=== PATIENT | male | born 1960 | race Caucasian/White ===

== ENCOUNTER 2016-09-21 08:11 | Observation (INO) | payer SELFPAY ==
[2016-09-21] VITALS (7 sets, daily range): BP systolic 124–148; BP diastolic 77–105; PULSE 76–93; RESP 14–20; TEMP 97.9–98.4; O2SAT 95–99
[~2016-09-21] VITALS: Ht 177.8 cm; Wt 118.5 kg
[~2016-09-21 08:11] MED LIST: DYAZ37.52 PO; INDO50CA PO; OMEP20CA5 PO; ST JTAB PO; [UNRECOGNIZED DRUG - OTHER]
--- NOTE | 2016-09-21 08:44 | PD ---
HPI Chief Complaint: Respiratory Symptoms Time Seen by Provider: 08:41 Travel History International Travel<30 days: No Contact w/Intl Traveler<30days: No Traveled to known affect area: No History of Present Illness HPI 56-year-old male with history of hypertension, presents to the ER today for several months history of dyspnea on exertion, leg swelling, worse with laying down. He states he sleeps on 3 pillows. He does not have a primary care physician and has not had this looked at. Modifying Factors: None Associated Signs & Symptoms: Worsening dyspnea on exertion, leg swelling Risk Factors: None PFSH Past Medical History Asthma: Yes (as a child ) Diminished Hearing: No GERD: Yes Hypertension: Yes Respiratory: Yes Past Surgical History Surgical History: No Previous Surgery Social History Alcohol Use: Yes ("3-4 times a week,2-3 beers a day") Tobacco Use: No (quit 1993) Substance Use: No Allergies-Medications (Allergen,Severity, Reaction): Coded Allergies: No Known Allergies (Verified , 05/09/14) Uncoded Allergies: blood pressure medication (Allergy, Severe, 09/21/16) unknown what the medication is. it caused a rash Reported Meds & Prescriptions Reported Meds & Active Scripts Active Reported Proair Respiclick Inh (Albuterol Sulfate) 90 Mcg/Act Aerp 1 Puff INH Q4H PRN Triamterene-Hydrochlorothiazide 37.5-25 Mg Tab 1 Tab PO DAILY Review of Systems Except as stated in HPI: all other systems reviewed are Neg Physical Exam Narrative GENERAL: Well-developed middle age white male patient currently in mild respiratory distress. Awake and oriented 3. SKIN: Focused skin assessment warm/dry. HEAD: Atraumatic. Normocephalic. EYES: Pupils equal and round. No scleral icterus. No injection or drainage. ENT: No nasal bleeding or discharge. Mucous membranes pink and moist. NECK: Trachea midline. No JVD. CARDIOVASCULAR: Regular rate and rhythm. No murmur appreciated. RESPIRATORY: No accessory muscle use. Clear to auscultation, decreased at the bases bilaterally. Breath sounds equal bilaterally. GASTROINTESTINAL: Abdomen soft, non-tender, nondistended. Hepatic and splenic margins not palpable. MUSCULOSKELETAL: No obvious deformities. No clubbing. No cyanosis. Trace pitting edema the legs bilaterally. NEUROLOGICAL: Awake and alert. No obvious cranial nerve deficits. Motor grossly within normal limits. Normal speech. PSYCHIATRIC: Appropriate mood and affect; insight and judgment normal. Data Data Last Documented VS Vital Signs Date Time Temp Pulse Resp B/P Pulse Ox O2 Delivery O2 Flow Rate FiO2 09/21/16 10:30 76 19 132/78 98 Nasal Cannula 2.0 09/21/16 08:13 98.0 Orders Complete Blood Count With Diff (09/21/16 08:41) Comprehensive Metabolic Panel (09/21/16 08:41) B-Type Natriuretic Peptide (09/21/16 08:41) D-Dimer (09/21/16 08:41) Act Partial Throm Time (Ptt) (09/21/16 08:41) Prothrombin Time / Inr (Pt) (09/21/16 08:41) Ckmb (Isoenzyme) Profile (09/21/16 08:41) Troponin I (09/21/16 08:41) Iv Access Insert/Monitor (09/21/16 08:41) Electrocardiogram (09/21/16 08:41) Ecg Monitoring (09/21/16 08:41) Oximetry (09/21/16 08:41) Oxygen Administration (09/21/16 08:41) Chest, Single Ap (09/21/16 08:41) Sodium Chloride 0.9% Flush (Ns Flush) (09/21/16 08:45) Furosemide Inj (Lasix Inj) (09/21/16 09:15) CKMB (09/21/16 08:46) CKMB% (09/21/16 08:46) Ct Pulmonary Angiogram (09/21/16 09:43) Iohexol 350 Inj (Omnipaque 350 Inj) (09/21/16 11:18) Labs Laboratory Tests Test 09/21/16 08:46 White Blood Count 7.0 TH/MM3 Red Blood Count 4.65 MIL/MM3 Hemoglobin 15.0 GM/DL Hematocrit 43.1 % Mean Corpuscular Volume 92.7 FL Mean Corpuscular Hemoglobin 32.3 PG Mean Corpuscular Hemoglobin 34.8 % Concent Red Cell Distribution Width 13.9 % Platelet Count 289 TH/MM3 Mean Platelet Volume 7.7 FL Neutrophils (%) (Auto) 69.7 % Lymphocytes (%) (Auto) 18.7 % Monocytes (%) (Auto) 4.8 % Eosinophils (%) (Auto) 5.5 % Basophils (%) (Auto) 1.3 % Neutrophils # (Auto) 4.8 TH/MM3 Lymphocytes # (Auto) 1.3 TH/MM3 Monocytes # (Auto) 0.3 TH/MM3 Eosinophils # (Auto) 0.4 TH/MM3 Basophils # (Auto) 0.1 TH/MM3 CBC Comment DIFF FINAL Differential Comment Prothrombin Time 11.2 SEC Prothromb Time International 1.0 RATIO Ratio Activated Partial 26.8 SEC Thromboplast Time D-Dimer Quantitative (PE/DVT) 0.95 MG/L FEU Sodium Level 139 MEQ/L Potassium Level 4.7 MEQ/L Chloride Level 107 MEQ/L Carbon Dioxide Level 23.7 MEQ/L Anion Gap 8 MEQ/L Blood Urea Nitrogen 15 MG/DL Creatinine 0.94 MG/DL Estimat Glomerular Filtration 83 ML/MIN Rate Random Glucose 108 MG/DL Calcium Level 9.7 MG/DL Total Bilirubin 0.9 MG/DL Aspartate Amino Transf 27 U/L (AST/SGOT) Alanine Aminotransferase 57 U/L (ALT/SGPT) Alkaline Phosphatase 83 U/L Total Creatine Kinase 131 U/L Creatine Kinase MB 2.0 NG/ML Troponin I LESS THAN 0.02 NG/ML B-Type Natriuretic Peptide 268 PG/ML Total Protein 7.6 GM/DL Albumin 4.2 GM/DL [facility] Medical Decision Making Medical Screen Exam Complete: Yes Emergency Medical Condition: Yes Medical Record Reviewed: Yes Interpretation(s) EKG shows normal sinus rhythm with a rate of 75 bpm with occasional APCs. No signs of acute ST-T changes. Laboratory Tests Test 09/21/16 08:46 Eosinophils (%) (Auto) 5.5 % (0.0-4.0) D-Dimer Quantitative (PE/DVT) 0.95 MG/L FEU (0.00-0.50) Estimat Glomerular Filtration 83 ML/MIN (>89) Rate Random Glucose 108 MG/DL (74-106) Troponin I LESS THAN 0.02 NG/ML (0.02-0.05) B-Type Natriuretic Peptide 268 PG/ML (0-100) Last [address] Angiography 09/21/16 0943 Signed Impressions: Service Date/Time: Wednesday, September 21, 2016 10:51 - CONCLUSION: 3.7 cm right middle lobe mass. Cardiomegaly, small effusions and nonspecific mediastinal wilmar enlargement. No evidence of pulmonary embolism Edmund Melton MD Chest X-Ray 09/21/16 0841 Signed Impressions: Service Date/Time: Wednesday, September 21, 2016 08:44 - CONCLUSION: 1. Cardiomegaly with pulmonary edema pattern. Domenic Cardoso MD Differential Diagnosis Leg swelling, orthopnea, dyspnea on exertionCHF versus COPD versus pneumonia Narrative Course Chest x-ray shows some mild pulmonary edema. Lasix was given in the ER. D- dimer is elevated and CTA was ordered. There were no PEs found but there was notable right pulmonary mass. At this point, my plan would be to admit the patient for further treatment. Case was discussed with Dr. Mancuso for admission for further evaluation and treatment. Diagnosis Primary Impression: Lung mass Admitting Information Admitting Physician Requests: Admit Katy Lorenz MD Sep 21, 2016 08:43
[2016-09-21] MEDS ORDERED: SODIUM CHLORIDE 0.9% FLUSH 10 ML FLUSH IVF PRN (08:45)
--- NOTE | 2016-09-21 09:06 | RADRPT ---
EXAM DATE/TIME: 09/21/2016 08:44 [facility] COMPARISON: No previous studies available for comparison. INDICATIONS : Short of breath. Chest tightness. Respiratory noise. MEDICAL HISTORY : Hypertension. Asthma. SURGICAL HISTORY : None. ENCOUNTER: Initial ACUITY: 1 month PAIN SCORE: 110 LOCATION: Bilateral chest FINDINGS: Cardiac silhouette is enlarged. Diffuse patchy bilateral airspace and interstitial opacities. Bony th orax is intact. CONCLUSION: 1. Cardiomegaly with pulmonary edema pattern. Domenic Cardoso MD on September 21, 2016 at 8:59 Board Certified Radiologist. This report was verified electronically.
[2016-09-21] MEDS ORDERED: TRIA37.5 PO (09:14)
[2016-09-21] MEDS ORDERED: ALBU1AER5 INH (09:14)
[2016-09-21] MEDS ORDERED: FUROSEMIDE 40 MG/4 ML VIAL IV PUSH ONE (09:15)
[2016-09-21 09:16] LABS: AUTOMATED NEUTROPHIL # 4.8 TH/MM3 (1.8-7.7); BASOPHIL # 0.1 TH/MM3 (0-0.2); BASOPHIL % 1.3 % (0.0-2.0); EOSINOPHIL # 0.4 TH/MM3 (0-0.4); EOSINOPHIL % 5.5 % (0.0-4.0); HEMATOCRIT 43.1 % (39.0-51.0); HEMO FLAGS DIFF FINAL; LYMPH % 18.7 % (9.0-44.0); LYMPHOCYTE # 1.3 TH/MM3 (1.0-4.8); MEAN CELL VOLUME 92.7 FL (80.0-100.0); MEAN CORPUSCULAR HEMOGLOBIN 32.3 PG (27.0-34.0); MEAN CORPUSCULAR HGB CONC 34.8 % (32.0-36.0); MONO % 4.8 % (0.0-8.0); NEUT % 69.7 % (16.0-70.0); PLATELET COUNT 289 TH/MM3 (150-450); RED BLOOD COUNT 4.65 MIL/MM3 (4.50-5.90); RED CELL DISTRIBUTION WIDTH 13.9 % (11.6-17.2)
[2016-09-21 09:31] LABS: ALT (GPT) 57 U/L (12-78); ANION GAP 8 MEQ/L (5-15); AST (GOT) 27 U/L (15-37); BICARBONATE 23.7 MEQ/L (21.0-32.0); BLOOD UREA NITROGEN 15 MG/DL (7-18); CHLORIDE 107 MEQ/L (98-107); GLOMERULAR FILTRATION RATE 83 ML/MIN (>89); POTASSIUM 4.7 MEQ/L (3.5-5.1); SODIUM (NA) 139 MEQ/L (136-145)
[2016-09-21 09:34] LABS: APTT (PATIENT) 26.8 SEC (24.3-30.1); PROTHROMBIN TIME - PATIENT 11.2 SEC (9.8-11.6)
[2016-09-21 09:35] LABS: ALKALINE PHOSPHATASE 83 U/L (45-117); CREATINE KINASE 131 U/L (39-308); TOTAL BILIRUBIN ADULT 0.9 MG/DL (0.2-1.0)
--- NOTE | 2016-09-21 11:17 | RADRPT ---
EXAM DATE/TIME: 09/21/2016 10:51 [facility] COMPARISON: CHEST SINGLE AP, September 21, 2016, 8:44. INDICATIONS : Dyspnea,edema bilateral ankles IV CONTRAST: 75 cc Omnipaque 350 (iohexol) IV RADIATION DOSE: 23.47 CTDIvol (mGy) MEDICAL HISTORY : Hypertension. SURGICAL HISTORY : None. ENCOUNTER: Initial ACUITY: 3 months PAIN SCALE: 0/10 LOCATION: chest TECHNIQUE: Volumetric scanning of the chest was performed using a pulmonary embolism protocol MIP images were re constructed. Using automated exposure control and adjustment of the mA and/or kV according to patien t size, radiation dose was kept as low as reasonably achievable to obtain optimal diagnostic quality images. DICOM format image data is available electronically for review and comparison. FINDINGS: PULMONARY ARTERIES: No filling defects are seen in the pulmonary arteries through the segmental level. LUNGS: There is a lobular 3.7 cm low density mass density in the right middle lobe. There is mild dependent atelectasis. PLEURAE: Small effusions and minimal fissural fluid MEDIASTINUM: Cardiac enlargement. Nonspecific mediastinal wilmar enlargement with prominent nodes seen in the preva scular, paratracheal and subcarinal regions, largest subcarinal node having a short axis dimension ap proaching 2 cm. MUSCULOSKELETAL: Within normal limits for patient age. MISCELLANEOUS: The visualized upper abdominal organs demonstrate no acute abnormality. CONCLUSION: 3.7 cm right middle lobe mass. Cardiomegaly, small effusions and nonspecific mediastinal wilmar enlargement. No evidence of pulmonary embolism Edmund Melton MD on September 21, 2016 at 11:08 Board Certified Radiologist. This report was verified electronically.
[2016-09-21] MEDS ORDERED: IOHEXOL 350 MG/ML 10 ML VIAL (for RAD DIAG) IV ONE (11:18)
[2016-09-21] MEDS ORDERED: ONDANSETRON HCL 4 MG/2 ML VIAL IVP PRN (12:15)
[2016-09-21] MEDS ORDERED: SENNOSIDES 8.6 MG TAB PO PRN (12:15)
[2016-09-21] MEDS ORDERED: BISACODYL 10 MG SUPP RECTAL PRN (12:15)
[2016-09-21] MEDS ORDERED: SODIUM CHLORIDE 0.9% FLUSH 10 ML FLUSH IV FLUSH PRN (12:15)
[2016-09-21] MEDS ORDERED: MAGNESIUM HYDROXIDE SUSP 30 ML CUP PO PRN (12:15)
[2016-09-21] MEDS ORDERED: NALOXONE HCL 0.4 MG/ML AMP IV PRN (12:15)
[2016-09-21] MEDS ORDERED: ENOXAPARIN SODIUM 40 MG/0.4 ML SYRINGE SQ SCH (12:15)
[2016-09-21] MEDS ORDERED: RESP: ALBUTEROL 2.5 MG/IPRATROPIUM 0.5 MG NEB (PRN) NEB (12:15)
[2016-09-21] MEDS ORDERED: LACTULOSE SYRUP 20 GM/30 ML CUP PO PRN (12:15)
--- NOTE | 2016-09-21 12:26 | HHI.HP ---
[facility] No Primary Care Physician Admission Diagnosis shortness of breath/lung mass Diagnoses: Chief Complaint: Shortness of breath. Travel History International Travel<30 Days: No Contact w/Intl Traveler <30 Da: No Traveled to Known Affected Are: No History of Present Illness Mr. Parnell is a pleasant 56-year-old male with a history of hypertension who presents to the emergency department today due to shortness of breath. Patient started noticing dyspnea in May 2016 but especially in the last 4 weeks he has noticed much worsening of his symptoms. He is not able to walk even short distances within his house. He denies any productive cough or fever or chills. This morning around 2 AM he woke up with shortness of breath. He has been increasing number of pillows from 1-3 pillows to sleep. Even then sometimes he has to sleep upright. He has not noticed much leg swelling except some bilateral ankle swelling. Today he went to work but he could not get out of the car because he felt so sick and short of breath. Subsequently he came to the emergency Department for an evaluation. He denies any changes in bowel or bladder habits. Denies any abdominal pain. Review of Systems Except as stated in HPI: all other systems reviewed are Neg Past Family Social History Past Medical History Asthma GERD Hypertension Past Surgical History No major surgery in the past. Reported Medications Proair Respiclick Inh (Albuterol Sulfate) 90 Mcg/Act Aerp 1 Puff INH Q4H PRN Triamterene-Hydrochlorothiazide 37.5-25 Mg Tab 1 Tab PO DAILY Allergies: Coded Allergies: No Known Allergies (Verified , 05/09/14) Uncoded Allergies: blood pressure medication (Allergy, Severe, 09/21/16) unknown what the medication is. it caused a rash Social History Quit smoking in 1993. Alcohol use 3-4 times a week, 2-3 beers a day. No illicit drugs. Physical Exam Vital Signs Vital Signs Date Time Temp Pulse Resp B/P Pulse Ox O2 Delivery O2 Flow Rate FiO2 09/21/16 10:30 76 19 132/78 98 Nasal Cannula 2.0 09/21/16 09:50 99 Nasal Cannula 2.0 09/21/16 09:50 83 14 134/92 99 Nasal Cannula 2.0 09/21/16 09:50 Nasal Cannula 2.0 09/21/16 09:30 86 16 148/99 99 Nasal Cannula 2.0 09/21/16 08:33 93 18 98 Room Air 09/21/16 08:21 09/21/16 08:13 98.0 93 20 142/105 97 Room Air Physical Exam GENERAL: This is a well-nourished, well-developed patient, in no apparent distress. SKIN: No rashes, ecchymoses or lesions. Warm and dry. HEAD: Atraumatic. Normocephalic. No temporal or scalp tenderness. EYES: Pupils equal round and reactive. No injection or drainage. ENT: Nose without bleeding, purulent drainage or septal hematoma. Airway patent. NECK: Trachea midline. No lymphadenopathy. Supple, nontender, no meningeal signs. CARDIOVASCULAR: Regular rate and rhythm without murmurs, gallops, or rubs. No JVD. RESPIRATORY: Moderate air entry, no wheezing or crackles appreciated. GASTROINTESTINAL: Abdomen soft, non-tender, nondistended. No guarding. MUSCULOSKELETAL: Extremities without clubbing, cyanosis, or edema. NEUROLOGICAL: Awake and alert. Cranial nerves II through XII intact. No focal neurological deficits. Normal speech. Laboratory Laboratory Tests Test 09/21/16 08:46 White Blood Count 7.0 Red Blood Count 4.65 Hemoglobin 15.0 Hematocrit 43.1 Mean Corpuscular Volume 92.7 Mean Corpuscular Hemoglobin 32.3 Mean Corpuscular Hemoglobin 34.8 Concent Red Cell Distribution Width 13.9 Platelet Count 289 Mean Platelet Volume 7.7 Neutrophils (%) (Auto) 69.7 Lymphocytes (%) (Auto) 18.7 Monocytes (%) (Auto) 4.8 Eosinophils (%) (Auto) 5.5 Basophils (%) (Auto) 1.3 Neutrophils # (Auto) 4.8 Lymphocytes # (Auto) 1.3 Monocytes # (Auto) 0.3 Eosinophils # (Auto) 0.4 Basophils # (Auto) 0.1 CBC Comment DIFF FINAL Differential Comment Prothrombin Time 11.2 Prothromb Time International 1.0 Ratio Activated Partial 26.8 Thromboplast Time D-Dimer Quantitative (PE/DVT) 0.95 Sodium Level 139 Potassium Level 4.7 Chloride Level 107 Carbon Dioxide Level 23.7 Anion Gap 8 Blood Urea Nitrogen 15 Creatinine 0.94 Estimat Glomerular Filtration 83 Rate Random Glucose 108 Calcium Level 9.7 Total Bilirubin 0.9 Aspartate Amino Transf 27 (AST/SGOT) Alanine Aminotransferase 57 (ALT/SGPT) Alkaline Phosphatase 83 Total Creatine Kinase 131 Creatine Kinase MB 2.0 Troponin I LESS THAN 0.02 B-Type Natriuretic Peptide 268 Total Protein 7.6 Albumin 4.2 Result Diagram: 09/21/1646 09/21/[address] Angiography 09/21/16 09 Signed Impressions: Service Date/Time: Wednesday, September 21, 2016 10:51 - CONCLUSION: 3.7 cm right middle lobe mass. Cardiomegaly, small effusions and nonspecific mediastinal wilmar enlargement. No evidence of pulmonary embolism Edmund Melton MD Chest X-Ray 09/21/1641 Signed Impressions: Service Date/Time: Wednesday, September 21, 2016 08:44 - CONCLUSION: 1. Cardiomegaly with pulmonary edema pattern. Domenic Cardoso MD Assessment and Plan Problem List: (1) Lung mass ICD Code: R91.8 Status: Acute (2) Hypertension ICD Code: I10 Status: Acute (3) GERD (gastroesophageal reflux disease) ICD Code: K21.9 Status: Acute Assessment and Plan Mr. Parnell is a 56-year-old male with a history of hypertension, remote history of smoking who presents to the emergency department due to worsening shortness of breath that started in May 2016 but especially worse in the last [address] PE protocol was done which showed a right-sided middle lobe lung mass. Patient also complains of orthopnea and some bilateral ankle swelling. - Admit patient under observation - Right middle lobe lung mass - Probable congestive heart failure - Probable COPD - BNP was 268 which may be lower due to patient's body habitus. - We'll obtain 2-D echocardiogram to evaluate LV function. - CT-guided lung biopsy on 09/22/2016. - Pulmonology consult. - Continue DuoNeb every 4 hours when necessary. - History of Hypertension - Currently normotensive. No need for antihypertensive medications at this point. - History of tobacco use - quit smoking 22 years ago but patient smoked for about 20 years. - Alcohol abuse - patient drinks 2-4 beer per night. We'll initiate CIWA protocol Full code. SCDs for now. Consider pharmacological DVT prophylaxis after CT- guided biopsy tomorrow. Discharge plan: If proper follow-up arranged, patient can likely be discharged after CT-guided biopsy assuming he remains hemodynamically stable. Physician Certification 2 Midnight Certification Type: Admission for Inpatient Services Order for Inpatient Services The services are ordered in accordance with Medicare regulations or non- Medicare payer requirements, as applicable. In the case of services not specified as inpatient-only, they are appropriately provided as inpatient services in accordance with the 2-midnight benchmark. Estimated LOS (days): 1 days is the estimated time the patient will need to remain in the hospital, assuming treatment plan goals are met and no additional complications. Post-Hospital Plan: Home Notes: Patient will be admitted under observation. Carlos Mancuso DO Sep 21, 2016 12:25 pm Carlos Mancuso DO Sep 21, 2016 12:25 pm
[2016-09-21] MEDS ORDERED: LORazepam 1 MG TAB PO PRN (13:45)
[2016-09-21] MEDS ORDERED: LORazepam 2 MG/ML VIAL IV PUSH PRN ×4 (13:45)
[2016-09-21] MEDS ORDERED: LORazepam 2 MG TAB PO PRN (13:45)
[2016-09-21] MEDS ORDERED: FLUMAZENIL 0.5 MG/5 ML VIAL IV PUSH PRN (13:45)
--- NOTE | 2016-09-21 19:04 | EKG ---
Date Performed: 09/21/2016 Time Performed: 10:14:32 PTAGE: 56 years EKG: Sinus rhythm WITH OCCASIONAL VENTRICULAR PREMATURE COMPLEXES BORDERLINE ECG NO PREVIOUS TRACING DOCTOR: Trevor Hernandez Interpretating Date/Time 09/21/2016 19:02:32
[2016-09-21] MEDS: DOCUSATE SODIUM 50 MG/SENNA 8.6 MG TAB PO SCH (19:56)
--- NOTE | 2016-09-21 21:50 | MB ---
cc: ADWOA LIMA DATE OF CONSULTATION 09/21/[address] Alexus Del Cid REASON FOR CONSULTATION Lung mass HISTORY OF PRESENT ILLNESS This is a pleasant 56-year-old male with history of hypertension, asthma as a child. No problem as an adult. He has not seen any physician over the last two years. He ran out of his blood pressure medication a long time ago and he stopped taking his medication. He came to the hospital with shortness of breath for at least four months which is gradually getting worse to the extent that he can barely walk inside the house. He also has orthopnea and PND, swelling in his legs. He did not have any fever or chills. He has cough, occasional chills. No nausea or vomiting. No hemoptysis. No weight loss. Because of these symptoms, he came to the hospital. He had a CT of the chest done. It does not show any pulmonary embolism. It showed a 3.7 cm right middle lobe mass and small pleural effusion. Nonspecific hilar lymphadenopathy. His CBC showed WBC count 7.0, hemoglobin 15.0, hematocrit 43.1 MCV 92, platelet count 289. His INR is 1.0, sodium 139, potassium 4.7, chloride 107, CO2 23, BUN 15, creatinine 0.94. PAST MEDICAL HISTORY Hypertension MEDICATIONS History of asthma as a child. MEDICATIONS Currently taking 1. Lorazepam p.r.n. 2. Lovenox 40 mg subcu which is on hold. 3. Albuterol/Atrovent nebulizer treatment. 4. Lasix IV. ALLERGIES NO KNOWN DRUG ALLERGIES. SOCIAL HISTORY He is . 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 He has history of smoking for 20 years which he quit. He drinks socially. FAMILY HISTORY He has no children. He has one brother and one sister. Father with a fall and broken neck. Mother is alive. REVIEW OF SYSTEMS He denies any weight loss. No headache or dizziness. He has orthopnea and PND. He has swelling in his legs. No DVT or pulmonary embolism. PHYSICAL EXAMINATION GENERAL: Well-built, well-nourished male not in any acute distress. VITAL SIGNS: Blood pressure 126/85, heart rate 77, respirations 20, temperature 97.9 HEENT: Pupils are equal and reactive to light. Oral mucosa, nasal mucosa normal. NECK: Supple. JVP not raised. CHEST: Equal bilaterally. No rhonchi. CARDIOVASCULAR: S1, S2 normal. ABDOMEN: Soft, nontender, nondistended. Bowel sounds are present. EXTREMITIES: 1+ pedal edema. HEALTH INFORMATION ADMINISTRATOR: Alert and oriented times three, no focal deficit. IMPRESSION 1. Right middle lobe mass concerning for malignancy. 2. Small pleural effusion. 3. Hypertension 4. Shortness of breath, orthopnea and PND. Need to rule out possibility of congestive heart failure. PLAN Discussed with the patient he will need a CT-guided lung biopsy. I explained the procedure and the complication which he understands and wants to proceed with it. I will request interventional radiology for CT-guided biopsy. Further treatment will depend in the course in the hospital. Thank you, Dr. Alexus Del Cid, for this consultation. MD ATA Contreras/ /7:53 PM /9:41 PM [facility]
[2016-09-21] MEDS: SODIUM CHLORIDE 0.9% FLUSH 10 ML FLUSH IV FLUSH SCH (22:58)
[2016-09-22] VITALS (10 sets, daily range): BP systolic 104–130; BP diastolic 67–85; PULSE 68–91; RESP 16–18; TEMP 97–98.4; O2SAT 91–99
[2016-09-22 05:44] LABS: AUTOMATED NEUTROPHIL # 4.4 TH/MM3 (1.8-7.7); BASOPHIL # 0.1 TH/MM3 (0-0.2); BASOPHIL % 1.2 % (0.0-2.0); EOSINOPHIL # 0.5 TH/MM3 (0-0.4); EOSINOPHIL % 7.2 % (0.0-4.0); HEMATOCRIT 42.6 % (39.0-51.0); HEMO FLAGS DIFF FINAL; LYMPH % 21.5 % (9.0-44.0); LYMPHOCYTE # 1.5 TH/MM3 (1.0-4.8); MEAN CELL VOLUME 93.2 FL (80.0-100.0); MEAN CORPUSCULAR HEMOGLOBIN 32.1 PG (27.0-34.0); MEAN CORPUSCULAR HGB CONC 34.4 % (32.0-36.0); MONO % 8.2 % (0.0-8.0); NEUT % 61.9 % (16.0-70.0); PLATELET COUNT 274 TH/MM3 (150-450); RED BLOOD COUNT 4.57 MIL/MM3 (4.50-5.90); RED CELL DISTRIBUTION WIDTH 14.1 % (11.6-17.2); WHITE BLOOD COUNT 7.1 TH/MM3 (4.0-11.0)
[2016-09-22 06:08] LABS: BICARBONATE 26.2 MEQ/L (21.0-32.0); POTASSIUM 4.1 MEQ/L (3.5-5.1)
[2016-09-22] MEDS: DOCUSATE SODIUM 50 MG/SENNA 8.6 MG TAB PO SCH ×2 (09:00→20:46)
[2016-09-22] MEDS: ACETAMINOPHEN 325 MG TAB PO PRN (09:22)
[2016-09-22] MEDS: SODIUM CHLORIDE 0.9% FLUSH 10 ML FLUSH IV FLUSH SCH ×2 (09:25→20:46)
[2016-09-22] MEDS ORDERED: PNEUMOCOCCAL POLYVALENT INJ 25 MCG/0.5 ML SYR IM ONE (10:00)
[2016-09-22] MEDS ORDERED: LIDOCAINE 1%/EPINEPHrine 1:100,000 SOLN 20 ML VIAL ONE (14:30)
[2016-09-22] MEDS ORDERED: MIDAZOLAM HCL 5 MG/5 ML VIAL ONE (15:00)
[2016-09-22] MEDS ORDERED: fentaNYL CITRATE 250 MCG/5 ML AMP ONE (15:00)
--- NOTE | 2016-09-22 15:22 | PD.RAD ---
Post CT Procedure Prog Note Pre Procedure Diagnosis: (1) Lung mass Post Procedure Diagnosis: (1) Lung mass Procedure Date: Sep 22, 2016 Supervising Radiologist: Reginaldo Durbin Anesthesia: Local, Conscious Sedation Plan of Activity Patient to Unit: [facility]U Patient Condition: Good Additional Comments: Successful ct guided biopsy of the right lung mass 3 core samples obtained and sent for pathology See PACS Report for procedural detail/treatment Reginaldo Durbin MD Sep 22, 2016 15:22
--- NOTE | 2016-09-22 16:07 | RADRPT ---
EXAM DATE/TIME: 09/22/2016 15:02 [facility] COMPARISON: CT PULMONARY ANGIOGRAM, September 21, 2016, 10:51. INDICATIONS : Right middle lobe mass SEDATION TIME: 20 minutes BIOPSY SITE: Right Lung MEDICATION(S): 1.) 3 mg midazolam (Versed) IV 2.) 150 mcg fentanyl (Sublimaze) IV DEVICE(S): 1.) 20 gauge Temno core biopsy needle MEDICAL HISTORY : Hypertension. SURGICAL HISTORY : None. ENCOUNTER: Initial ACUITY: 1 day PAIN SCORE: 0/10 LOCATION: Right chest A total of three core specimen(s) were obtained and sent to the laboratory for pathologic evaluation. PROCEDURE: 1. CT guided right lung biopsy. Prior to the procedure informed consent was obtained. Any appropriate prior imaging studies were rev iewed. Using automated exposure control and adjustment of the mA and/or kV according to patient size, radiation dose was kept as low as reasonably achievable to obtain optimal diagnostic quality images. DICOM format image data is available electronically for review and comparison. The site was prepped in a sterile fashion. Full sterile technique was used, including cap, mask, dali rile gloves and gown and a large sterile sheet. Hand hygiene and 2% chlorhexidine and/or betadine/al cohol prep was utilized per protocol for cutaneous antisepsis. The skin and subcutaneous tissues wer e infiltrated with local anesthetic solution. With CT guidance the previously identified target was localized. Biopsy was performed using the presc ribed needle as above. Adequate hemostasis was obtained with compression at the puncture site. Follow-up CT scan reveals no pneumothorax. Conscious sedation was performed with the prescribed dosages and duration as above in the presence of an independent trained radiology nurse to assist in the monitoring of the patient. EKG and oximetry remained stable throughout the procedure. The patient tolerated the procedure well and there were no complications. The patient was sent to Radiology Outpatient Unit in stable condition. CONCLUSION: Uncomplicated CT guided biopsy. Reginaldo Durbin MD on September 22, 2016 at 16:05 Board Certified Radiologist. This report was verified electronically.
--- NOTE | 2016-09-22 17:48 | RADRPT ---
EXAM DATE/TIME: 09/22/2016 17:19 [facility] COMPARISON: No previous studies available for comparison. INDICATIONS : Post right lung biopsy. MEDICAL HISTORY : Hypertension. SURGICAL HISTORY : None. ENCOUNTER: Subsequent ACUITY: 1 day PAIN SCORE: 0/10 LOCATION: Right chest FINDINGS: A single frontal expiratory view of the chest was performed. The lungs are symmetrically aerated and clear. No evidence of pneumothorax. Mediastinal structures are in the midline. Redemonstration of mass in the right middle lobe. The cardio-mediastinal contours and bronchopulmonary markings are unremarkable for an expiratory exam . Osseous structures are intact. CONCLUSION: 1. No significant pneumothorax following biopsy of right middle lobe mass. Domenic Cardoso MD on September 22, 2016 at 17:46 Board Certified Radiologist. This report was verified electronically.
--- NOTE | 2016-09-22 18:06 | HHI.PR ---
Subjective Remarks 56 YOWM with RML mass, HTN, mils SOB Had Lung bx No PTX Objective Vital Signs Vital Signs Date Time Temp Pulse Resp B/P Pulse Ox O2 Delivery O2 Flow Rate FiO2 09/22/16 17:33 96 21 09/22/16 17:20 70 18 113/78 96 09/22/16 16:50 69 16 112/72 96 09/22/16 16:20 68 18 106/67 99 09/22/16 15:50 70 18 105/71 98 09/22/16 15:35 98.4 91 18 104/77 91 09/22/16 12:00 97.0 75 18 120/73 95 09/22/16 08:00 97.2 72 18 119/78 96 09/22/16 07:51 21 09/22/16 00:00 97.2 71 17 117/77 95 09/21/16 20:00 98.4 76 17 124/81 95 I/O 09/21/16 09/21/16 09/21/16 09/22/16 09/22/16 09/22/16 07:00 15:00 23:00 07:00 15:00 23:00 Intake Total 240 ml 0 ml 0 ml 0 ml Output Total 2525 ml 0 ml Balance -2285 ml 0 ml 0 ml 0 ml Intake Oral 240 ml 0 ml 0 ml 0 ml Output Urine Total 2525 ml 0 ml # Voids 1 1 2 2 # Bowel Movements 1 1 Result Diagram: 09/22/16 0500 09/22/16 0500 Objective Remarks GENERAL: WBWN WM,NAD SKIN: Warm and dry. HEAD: Normocephalic. EYES: No scleral icterus. No injection or drainage. NECK: Supple, trachea midline. No JVD or lymphadenopathy. CARDIOVASCULAR: Regular rate and rhythm without murmurs, gallops, or rubs. RESPIRATORY: Breath sounds equal bilaterally. No accessory muscle use. GASTROINTESTINAL: Abdomen soft, non-tender, nondistended. MUSCULOSKELETAL: No cyanosis, or edema. BACK: Nontender without obvious deformity. No CVA tenderness. A/P Assessment and Plan RML Mass S/P lung bx Dysnoea HTN PLAN: Check bx result Monitor BP Check Echo Karthik King MD Sep 22, 2016 18:06
--- NOTE | 2016-09-22 19:55 | HHI.PR ---
Subjective Remarks Follow-up for shortness of breath, lung mass. Patient is currently doing well. No fever or chills. Objective Vitals Vital Signs Date Time Temp Pulse Resp B/P Pulse Ox O2 Delivery O2 Flow Rate FiO2 09/22/16 17:33 96 21 09/22/16 17:20 70 18 113/78 96 09/22/16 16:50 69 16 112/72 96 09/22/16 16:20 68 18 106/67 99 09/22/16 15:50 70 18 105/71 98 09/22/16 15:35 98.4 91 18 104/77 91 09/22/16 12:00 97.0 75 18 120/73 95 09/22/16 08:00 97.2 72 18 119/78 96 09/22/16 07:51 21 09/22/16 00:00 97.2 71 17 117/77 95 09/21/16 20:00 98.4 76 17 124/81 95 I/O 09/21/16 09/21/16 09/21/16 09/22/16 09/22/16 09/22/16 07:00 15:00 23:00 07:00 15:00 23:00 Intake Total 240 ml 0 ml 0 ml 0 ml Output Total 2525 ml 0 ml Balance -2285 ml 0 ml 0 ml 0 ml Intake Oral 240 ml 0 ml 0 ml 0 ml Output Urine Total 2525 ml 0 ml # Voids 1 1 2 2 # Bowel Movements 1 1 Result Diagram: 09/22/16 0500 09/22/16 0500 Imaging Last Impressions Lung Biopsy CT 09/22/16 0000 Signed Impressions: Service Date/Time: Thursday, September 22, 2016 15:02 - CONCLUSION: Uncomplicated CT guided biopsy. Reginaldo Durbin MD Chest X-Ray 09/22/16 0000 Signed Impressions: Service Date/Time: Thursday, September 22, 2016 17:19 - CONCLUSION: 1. No significant pneumothorax following biopsy of right middle lobe mass. Domenic Cardoso MD CT Angiography 09/21/16 0943 Signed Impressions: Service Date/Time: Wednesday, September 21, 2016 10:51 - CONCLUSION: 3.7 cm right middle lobe mass. Cardiomegaly, small effusions and nonspecific mediastinal wilmar enlargement. No evidence of pulmonary embolism Edmund Melton MD Objective Remarks GENERAL: Alert, oriented 3, NAD. SKIN: Warm and dry. HEAD: Normocephalic. EYES: No scleral icterus. No injection or drainage. NECK: Supple, trachea midline. No JVD or lymphadenopathy. CARDIOVASCULAR: Regular rate and rhythm without murmurs, gallops, or rubs. RESPIRATORY: Breath sounds equal bilaterally. No accessory muscle use. GASTROINTESTINAL: Abdomen soft, non-tender, nondistended. MUSCULOSKELETAL: No cyanosis, or edema. BACK: Nontender without obvious deformity. No CVA tenderness. Procedures Lung biopsy CT guided 09/22/2016. A/P Problem List: (1) Lung mass ICD Code: R91.8 Status: Acute (2) Hypertension ICD Code: I10 Status: Acute (3) GERD (gastroesophageal reflux disease) ICD Code: K21.9 Status: Acute Assessment and Plan Mr. Parnell is a 56-year-old male with a history of hypertension, remote history of smoking who presents to the emergency department due to worsening shortness of breath that started in May 2016 but especially worse in the last [address] PE protocol was done which showed a right-sided middle lobe lung mass. Patient also complains of orthopnea and some bilateral ankle swelling. - Right middle lobe lung mass - Probable congestive heart failure - Probable COPD - BNP was 268 which may be lower due to patient's body habitus. - 2-D echocardiogram pending to evaluate LV function. - CT-guided lung biopsy on 09/22/2016. - Pulmonology following. - Continue DuoNeb every 4 hours when necessary. - History of Hypertension - Currently normotensive. No need for antihypertensive medications at this point. - History of tobacco use - quit smoking 22 years ago but patient smoked for about 20 years. - Alcohol abuse - patient drinks 2-4 beer per night. WA protocol Full code. SCDs for now. Lovenox from 09/23/2016. Likely discharge on 09/23/2016 if echo is unremarkable. Carlos Mancuso DO Sep 22, 2016 19:55
[2016-09-23] VITALS: BP 118/77; PULSE 79; RESP 18; TEMP 97.5; O2SAT 98
[2016-09-23 08:00] VITALS: BP 119/78; PULSE 76; RESP 17; TEMP 96.9; O2SAT 96
[2016-09-23] MEDS: DOCUSATE SODIUM 50 MG/SENNA 8.6 MG TAB PO SCH ×2 (08:55→21:00)
[2016-09-23] MEDS: SODIUM CHLORIDE 0.9% FLUSH 10 ML FLUSH IV FLUSH SCH ×2 (09:00→21:00)
[2016-09-23] MEDS: ENOXAPARIN SODIUM 40 MG/0.4 ML SYRINGE SQ SCH ×2 (10:00→16:21)
--- NOTE | 2016-09-23 10:21 | HHI.PR ---
Subjective Remarks Follow-up for shortness of breath Shortness of breath almost resolved, on room air, has been abating without any difficulty. No nausea or vomiting. No cough, fever or chills. Almost back to normal per patient. No lower extremity edema. Objective Vitals Vital Signs Date Time Temp Pulse Resp B/P Pulse Ox O2 Delivery O2 Flow Rate FiO2 09/23/16 08:00 96.9 76 17 119/78 96 09/23/16 00:00 97.5 79 18 118/77 98 09/22/16 20:00 97.9 77 18 130/85 98 09/22/16 17:33 96 21 09/22/16 17:20 70 18 113/78 96 09/22/16 16:50 69 16 112/72 96 09/22/16 16:20 68 18 106/67 99 09/22/16 15:50 70 18 105/71 98 09/22/16 15:35 98.4 91 18 104/77 91 09/22/16 12:00 97.0 75 18 120/73 95 I/O 09/22/16 09/22/16 09/22/16 09/23/16 09/23/16 09/23/16 07:00 15:00 23:00 07:00 15:00 23:00 Intake Total 0 ml 0 ml 360 ml 240 ml Output Total 0 ml 125 ml Balance 0 ml 0 ml 360 ml 115 ml Intake Oral 0 ml 0 ml 360 ml 240 ml IV Total 0 ml 0 ml Output Urine Total 0 ml 125 ml # Voids 2 2 2 2 # Bowel Movements 1 1 Result Diagram: 09/22/16 0500 09/22/16 0500 Objective Remarks GENERAL: Alert, oriented 3, NAD. SKIN: Warm and dry. HEAD: Normocephalic. EYES: No scleral icterus. No injection or drainage. NECK: Supple, trachea midline. No JVD or lymphadenopathy. CARDIOVASCULAR: Regular rate and rhythm without murmurs, gallops, or rubs. RESPIRATORY: Breath sounds equal bilaterally. No crackles at all. GASTROINTESTINAL: Abdomen soft, non-tender, nondistended. MUSCULOSKELETAL: No cyanosis, or edema. BACK: Nontender without obvious deformity. No CVA tenderness. Alert awake and oriented 3, no focal deficits. Procedures Lung biopsy CT guided 09/22/2016. A/P Problem List: (1) Lung mass ICD Code: R91.8 Status: Acute (2) Hypertension ICD Code: I10 Status: Acute (3) GERD (gastroesophageal reflux disease) ICD Code: K21.9 Status: Acute Assessment and Plan Mr. Parnell is a 56-year-old male with a history of hypertension, remote history of smoking who presents to the emergency department due to worsening shortness of breath that started in May 2016 but especially worse in the last [address] PE protocol was done which showed a right-sided middle lobe lung mass. Patient also complains of orthopnea and some bilateral ankle swelling. Right middle lobe lung mass, rule out congestive heart failure, possible COPD - BNP was 268 which may be lower due to patient's body habitus. - 2-D echocardiogram pending to evaluate LV function, done, pending results. - CT-guided lung biopsy on 09/22/2016. - Pulmonology following. Biopsy pending. - Continue DuoNeb every 4 hours when necessary. Shortest of breath resolved. - History of Hypertension - Currently normotensive. No need for antihypertensive medications at this point. - History of tobacco use - quit smoking 22 years ago but patient smoked for about 20 years. - Alcohol abuse - patient drinks 2-4 beer per night. CIWA protocol Full code. Lovenox Discharge Planning If echocardiogram is unremarkable, discharge today, follow-up with Dr. King. Consult case management for patient assistance. Mikey Ochoa MD Sep 23, 2016 10:21
[2016-09-23] MEDS ORDERED: TRIA37.5 PO (10:25)
[2016-09-23] MEDS ORDERED: ALBU1AER5 INH (10:25)
--- NOTE | 2016-09-23 11:52 | ECHRPT ---
Indication: Heart failure, unspecified CONCLUSIONS The left ventricular systolic function is severely reduced with an estimated ejection fraction in th e range of 25-30%. Mild concentric left ventricular hypertrophy. Moderately dilated left ventricle. [id number] mitral valve regurgitation. The left atrial size is mildly dilated. BP: 125 / 77 HR: 90 Rhythm: Sinus MEASUREMENTS (Male / Female) Normal Values Technical Quality:Good 2D ECHO LV Diastolic Diameter PLAX 6.5 cm 4.2 - 5.9 / 3.9 - 5.3 cm LV Systolic Diameter PLAX 5.5 cm IVS Diastolic Thickness 1.2 cm 0.6 - 1.0 / 0.6 - 0.9 cm LVPW Diastolic Thickness 1.2 cm 0.6 - 1.0 / 0.6 - 0.9 cm LV Relative Wall Thickness 0.4 LVOT Diameter 2.1 cm M-MODE Aortic Root Diameter MM 3.0 cm LA Systolic Diameter MM 4.4 cm LA Ao Ratio MM 1.5 AV Cusp Separation MM 2.1 cm DOPPLER AV Peak Velocity 124.0 cm/s AV Peak Gradient 6.2 mmHg LVOT Peak Velocity 72.6 cm/s LVOT Peak Gradient 2.1 mmHg AV Area Cont Eq pk 2.0 cm MR Peak Velocity 429.5 cm/s MR Peak Gradient 73.8 mmHg Mitral E Point Velocity 124.0 cm/s LV E' Septal Velocity 5.9 cm/s Mitral E to LV E' Septal Ratio 21.2 PV Peak Velocity 70.6 cm/s PV Peak Gradient 2.0 mmHg FINDINGS LEFT VENTRICLE The left ventricular systolic function is severely reduced with an estimated ejection fraction in th e range of 25-30%. Mild concentric left ventricular hypertrophy. Moderately dilated left ventricle. RIGHT VENTRICLE Normal right ventricular size and systolic function. LEFT ATRIUM The left atrial size is mildly dilated. RIGHT ATRIUM The right atrial size is normal. ATRIAL SEPTUM Normal atrial septal thickness without atrial level shunting by limited color doppler interrogation. AORTA The aortic root and proximal ascending aorta are normal in size on limited imaging. MITRAL VALVE [id number] mitral valve regurgitation. AORTIC VALVE Trileaflet aortic valve. No aortic valve stenosis or regurgitation. TRICUSPID VALVE Structurally normal tricuspid valve. No tricuspid valve stenosis or regurgitation. PULMONARY VALVE The pulmonary valve is not well visualized. VESSELS The inferior vena cava is normal in size. PERICARDIUM No pericardial effusion. Chuck Chanel MD, FACC (Electronically Signed) Final Date:23 September 2016 11:51
[2016-09-23 12:00] VITALS: BP 117/77; PULSE 80; RESP 18; TEMP 97.2; O2SAT 99
[2016-09-23] MEDS ORDERED: PILL SPLITTER OTHER PRN (16:00)
[2016-09-23] MEDS: FUROSEMIDE 20 MG TAB PO SCH (16:18)
[2016-09-23] MEDS: LISINOPRIL 5 MG TAB PO SCH (16:18)
--- NOTE | 2016-09-23 17:32 | HHI.PR ---
Subjective Remarks 56 YOWM with RML mass, HTN, mils SOB Had Lung bx No PTX Lung bx suspicious for SSLC Objective Vital Signs Vital Signs Date Time Temp Pulse Resp B/P Pulse Ox O2 Delivery O2 Flow Rate FiO2 09/23/16 12:34 21 09/23/16 12:00 97.2 80 18 117/77 99 09/23/16 08:00 96.9 76 17 119/78 96 09/23/16 00:00 97.5 79 18 118/77 98 09/22/16 20:00 97.9 77 18 130/85 98 09/22/16 17:33 96 21 I/O 09/22/16 09/22/16 09/22/16 09/23/16 09/23/16 09/23/16 07:00 15:00 23:00 07:00 15:00 23:00 Intake Total 0 ml 0 ml 360 ml 240 ml 600 ml Output Total 0 ml 125 ml Balance 0 ml 0 ml 360 ml 115 ml 600 ml Intake Oral 0 ml 0 ml 360 ml 240 ml 600 ml IV Total 0 ml 0 ml Output Urine Total 0 ml 125 ml # Voids 2 2 2 2 4 # Bowel Movements 1 1 1 Result Diagram: 09/22/16 0500 09/22/16 0500 Objective Remarks GENERAL: WBWN WM,NAD SKIN: Warm and dry. HEAD: Normocephalic. EYES: No scleral icterus. No injection or drainage. NECK: Supple, trachea midline. No JVD or lymphadenopathy. CARDIOVASCULAR: Regular rate and rhythm without murmurs, gallops, or rubs. RESPIRATORY: Breath sounds equal bilaterally. No accessory muscle use. GASTROINTESTINAL: Abdomen soft, non-tender, nondistended. MUSCULOSKELETAL: No cyanosis, or edema. BACK: Nontender without obvious deformity. No CVA tenderness. A/P Assessment and Plan RML Mass S/P lung bx Dysnoea HTN PLAN: DW Pt Monitor BP Consult Oncology Karthik King MD Sep 23, 2016 17:31
[2016-09-23 18:19] VITALS: O2SAT 99
[2016-09-23 19:57] LABS: BICARBONATE 27.6 MEQ/L (21.0-32.0); POTASSIUM 3.8 MEQ/L (3.5-5.1)
[2016-09-23 20:20] VITALS: BP 117/81; PULSE 82; RESP 18; TEMP 97; O2SAT 98
--- NOTE | 2016-09-23 20:26 | MB ---
cc: HO HIRSCH DATE OF CONSULTATION: 09/23/2016. REASON FOR CONSULTATION: Lung mass. PATIENT PROFILE: The patient is a 56-year-old white male. This is his second marriage. He has no children. He was born in [place]. He has lived in [place] since the age of 16. He sprays lawns for a living. He stopped smoking 22 years ago and smoked a pack of cigarettes per day for 15 years for a total of 15 pack-years. 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 He also has potential pulmonary exposure in his work where he sprays lawns. He has three beers a day. HISTORY OF PRESENT ILLNESS: The patient is a 56-year-old male who has not had any significant medical problems in the past. He was well until May of 2016. He developed an upper respiratory tract infection, which subsided and then immediately following this was left with shortness of breath. He has had progressive exertional shortness of breath and walking 20 to 30 feet is difficult. He has developed edelmira orthopnea and PND. He will fall asleep in bed and then have to sit up around 03:00 a.m. because he cannot catch his breath and he hears gurgling in his chest. At the same time, he has heaviness over the chest. He has had no previous history of an SC or coronary artery disease. He has had hypertension It was the breathing problem which brought him to the emergency room. During the course of his evaluation, he had a CT angiogram on 09/21/2016, which shows a 3.7 cm right middle lobe mass, cardiomegaly, small effusions and nonspecific mediastinal wilmar enlargement. There was no evidence of a pulmonary embolism. A CT lung biopsy was performed on 09/22/16 with results showing minute fragments of fibrous tissue and blood with detached atypical epithelioid cells. There is an additional comment, which reads, "On deeper levels, the epithelioid cells are more prominent and show some features suspicious for small cell carcinoma. Clinical correlation is recommended." Laboratory tests on 09/22 consist of a hemoglobin of 14.7, white count 7000, and platelets of 274,000. Lytes, BUN, creatinine and liver function tests unremarkable. BNP is 268. The patient had an echocardiogram performed on 09/23/[address] Palu Chanel and the comments read, "The left ventricular systolic function is severely reduced with an estimated ejection fraction in the range of 25-30%. There is mild concentric left ventricular hypertrophy. There is a moderately dilated left ventricle. There is mild to moderate mitral valve regurgitation." PAST SURGICAL HISTORY: No previous surgeries. PAST MEDICAL HISTORY: 1. Hypertension in the past. 2. Obesity. 3. Right patellar fracture. 4. Bilateral ankle fractures. MEDICATIONS PRIOR TO ADMISSION: None ALLERGIES: None. FAMILY HISTORY: Father at 75 of complications of an injury to the cervical spine following a fall. Mother is living. The patient has a brother 59 living and sister 45 living. REVIEW OF SYSTEMS: VISION: He has glasses. HEARING: Fine. CARDIOVASCULAR: Notable for exertional shortness of breath, orthopnea and paroxysmal nocturnal dyspnea. RESPIRATORY: Notable for exertional shortness of breath. GASTROINTESTINAL: No melena, hematochezia, hematemesis, dysphagia or weight loss. GENITOURINARY: No dysuria or frequency. MUSCULOSKELETAL: Pain in the right knee. Occasional discomfort in the ankles. NEUROLOGIC: No focal weakness. Cognition and affect are normal. SKIN: Unremarkable. PHYSICAL EXAMINATION: GENERAL: The physical exam reveals a large gentleman. He does not appear acutely ill. VITAL SIGNS: Blood pressure is 117/70, respiratory rate 18, pulse 80, afebrile, 02 saturation 99%. HEAD, EYES, EARS, NOSE, THROAT: Head is normocephalic. The sclerae and conjunctivae are normal. Oropharynx is unremarkable. LYMPHATIC: There is no cervical, supraclavicular, axillary or inguinal adenopathy. HEART: Regular rhythm. LUNGS: Clear. No wheezes, rales or rhonchi. ABDOMEN: Abdomen is soft. No hepatosplenomegaly. No masses. No tenderness. EXTREMITIES: Trace edema. MUSCULOSKELETAL: No bone pain. NEUROLOGIC: No weakness. Cognition and affect are normal. SKIN: Normal. ASSESSMENT: 1. The patient is a 56-year-old male. He has a right lung mass which is most likely a malignancy. The pathology report is suspicious for a small cell lung cancer but this does not make a diagnosis. Usually when one has a small cell lung cancer, it is a large mass and this is not a large mass and therefore, at this point, I would not feel comfortable with the diagnosis of small cell lung cancer and he will require another biopsy. 2. He has edelmira congestive heart failure. He has orthopnea, paroxysmal nocturnal dyspnea, exertional shortness of breath and he appears to have a cardiomyopathy with a severely reduced ejection fraction of 25-30%. If I attempted to treat this gentleman for lung cancer, he would . He is short of breath with minimal exertion. He cannot breathe at night. This issue needs to be resolved. I await the cardiology consultation. Following this, I think if we are able to resolve the issues of congestive heart failure, then he should have a repeat biopsy of the lung lesion and also would require a PET scan to evaluate for metastatic disease and especially to evaluate the mediastinum. At this point, there is not enough information to make any recommendations regarding treatment of a presumed lung cancer. He does not have health insurance. This produces problems as well, and case management will need to be involved. MD KAMERON Denis/ELISA /7:55 PM /8:14 PM RICCO
[2016-09-24 00:30] VITALS: BP 115/75; PULSE 88; RESP 18; TEMP 97.3; O2SAT 97
[2016-09-24] MEDS: SODIUM CHLORIDE 0.9% FLUSH 10 ML FLUSH IV FLUSH SCH ×3 (04:00→21:34)
[2016-09-24 06:29] LABS: BICARBONATE 25.4 MEQ/L (21.0-32.0); POTASSIUM 4.1 MEQ/L (3.5-5.1)
[2016-09-24 08:00] VITALS: BP 117/74; PULSE 92; RESP 17; TEMP 97.8; O2SAT 97
[2016-09-24] MEDS: FUROSEMIDE 20 MG TAB PO SCH (09:08)
[2016-09-24] MEDS: LISINOPRIL 5 MG TAB PO SCH (09:08)
[2016-09-24] MEDS: DOCUSATE SODIUM 50 MG/SENNA 8.6 MG TAB PO SCH ×2 (09:08→21:00)
[2016-09-24] MEDS: ENOXAPARIN SODIUM 40 MG/0.4 ML SYRINGE SQ SCH (09:09)
[2016-09-24 09:10] VITALS: O2SAT 95
[2016-09-24] MEDS ORDERED: FURO20TA PO (09:20)
[2016-09-24] MEDS ORDERED: ASPI81CH CHEW (09:20)
[2016-09-24] MEDS ORDERED: METO25TA3 PO (09:20)
[2016-09-24] MEDS ORDERED: METOPROLOL TARTRATE 25 MG TAB PO SCH (09:20)
[2016-09-24] MEDS: ASPIRIN EC 81 MG TABEC PO SCH (09:20)
[2016-09-24] MEDS ORDERED: LISI-519 PO (09:20)
--- NOTE | 2016-09-24 10:14 | PD.ONC.PN ---
Subjective Subjective Remarks Afebrile overnight. Patient resting in bed complaining of gout in his right ankle. He usually takes Indocin for this at home and is requesting some now. Objective Data Date Time Temp Pulse Resp B/P Pulse Ox O2 Delivery O2 Flow Rate FiO2 09/24/16 09:10 95 21 09/24/16 08:00 97.8 92 17 117/74 97 09/24/16 00:30 97.3 88 18 115/75 97 09/23/16 20:20 97.0 82 18 117/81 98 09/23/16 18:19 99 21 09/23/16 12:34 21 09/23/16 12:00 97.2 80 18 117/77 99 09/24/16 09/24/16 09/24/16 07:00 15:00 23:00 Intake Total 480 ml Balance 480 ml Result Diagram: 09/22/16 0500 09/24/16 0455 Laboratory Results Laboratory Tests Test 09/23/16 09/24/16 19:10 04:55 Sodium Level 138 MEQ/L 140 MEQ/L Potassium Level 3.8 MEQ/L 4.1 MEQ/L Chloride Level 104 MEQ/L 105 MEQ/L Carbon Dioxide Level 27.6 MEQ/L 25.4 MEQ/L Anion Gap 6 MEQ/L 10 MEQ/L Blood Urea Nitrogen 18 MG/DL 13 MG/DL Creatinine 1.14 MG/DL 1.05 MG/DL Estimat Glomerular Filtration 67 ML/MIN 73 ML/MIN Rate Random Glucose 138 MG/DL 92 MG/DL Calcium Level 9.3 MG/DL 9.6 MG/DL Administered Medications Medications (Trade) Dose Ordered Sig/Panda Route PRN Reason Start Time Stop Time Status Last Admin Dose Admin Sodium Chloride (NS Flush) 2 ml BID IV FLUSH 09/21/16 21:00 09/24/16 09:09 Acetaminophen (Tylenol) 650 mg Q4H PRN PO Fever, headache, pain 1-4 09/21/16 12:15 09/22/16 09:22 Senna/Docusate Sodium (Lizet-Colace) 1 tab BID PO 09/21/16 21:00 09/24/16 09:08 Enoxaparin Sodium (Lovenox Inj) 40 mg Q24H SQ 09/23/16 10:00 09/24/16 09:09 Lisinopril (Prinivil) 2.5 mg DAILY PO 09/23/16 15:48 09/24/16 09:08 Furosemide (Lasix) 20 mg DAILY PO 09/23/16 15:48 09/24/16 09:08 Objective Remarks GENERAL: Middle aged male upright in bed complaining of pain. SKIN: Warm and dry. HEAD: Normocephalic. EYES: No injection or drainage. NECK: Supple, trachea midline. CARDIOVASCULAR: +S1/S2 RESPIRATORY: diminished at bases, anterior mahan clear GASTROINTESTINAL: Abdomen soft, non-tender, nondistended. EXTREMITIES: No cyanosis NEUROLOGICAL: No obvious focal deficit. Awake, alert, and oriented x3. Assessment/Plan Assessment 56y/o male with right lung mass and CHF Plan 1. await cardiology consult-will need their input to improve CHF before we can move forward with any type of treatment for cancer 2. need a repeat biopsy for definitive diagnosis/cancer type 3. outpatient will need PET/CT scan 4. will start Indocin 50mg PO TID x 3 doses for severe gout. Attending Statement The exam, history, and the medical decision-making described in the above note were completed with the assistance of the mid-level provider. I reviewed and agree with the findings presented. I attest that I had a [id number] encounter with the patient on the same day, and personally performed and documented my assessment and findings in the medical record. remains a very difficult case. I will move ahead with additional testing once the patient's CHF has resolved as he he will not tolerate the rigors of therapy unless the cardiac status is better. will give a short course of Indocin for gout which has been successful in past. above reviewed with patient and he understands issues. will ask case management to help. Jennifer Ramirez Sep 24, 2016 10:14 Jhonatan Greer MD Sep 24, 2016 15:50
[2016-09-24 12:00] VITALS: BP 129/84; PULSE 93; RESP 18; TEMP 99.3; O2SAT 97
--- NOTE | 2016-09-24 12:43 | HHI.PR ---
Subjective Remarks Follow-up for lung mass Shortness of breath better, no chest pain or palpitations. No nausea or vomiting. Patient cannot remember any episode of chest pain however in May, he had an episode of shortness of breath, dizziness and lightheadedness which resolved after 25 minutes. No prior history of heart attacks. Objective Vitals Vital Signs Date Time Temp Pulse Resp B/P Pulse Ox O2 Delivery O2 Flow Rate FiO2 09/24/16 12:00 99.3 93 18 129/84 97 09/24/16 09:10 95 21 09/24/16 08:00 97.8 92 17 117/74 97 09/24/16 00:30 97.3 88 18 115/75 97 09/23/16 20:20 97.0 82 18 117/81 98 09/23/16 18:19 99 21 I/O 09/23/16 09/23/16 09/23/16 09/24/16 09/24/16 09/24/16 06:59 14:59 22:59 06:59 14:59 22:59 Intake Total 240 ml 600 ml 480 ml 480 ml Output Total 125 ml Balance 115 ml 600 ml 480 ml 480 ml Intake Oral 240 ml 600 ml 480 ml 480 ml IV Total 0 ml Output Urine Total 125 ml # Voids 2 4 2 2 # Bowel Movements 1 Result Diagram: 09/22/16 0500 09/24/16 0455 Objective Remarks GENERAL: Alert, oriented 3, NAD. NECK: Supple, trachea midline. CARDIOVASCULAR: Regular rate and rhythm without murmurs, gallops, or rubs. RESPIRATORY: Decreased breath sounds, no crackles. GASTROINTESTINAL: Abdomen soft, non-tender, nondistended. MUSCULOSKELETAL: No cyanosis, or edema. BACK: Nontender without obvious deformity. No CVA tenderness. Alert awake and oriented 3, no focal deficits. Procedures Lung biopsy CT guided 09/22/2016. A/P Problem List: (1) Lung mass ICD Code: R91.8 Status: Acute (2) Hypertension ICD Code: I10 Status: Acute (3) GERD (gastroesophageal reflux disease) ICD Code: K21.9 Status: Acute Assessment and Plan Mr. Parnell is a 56-year-old male with a history of hypertension, remote history of smoking who presents to the emergency department due to worsening shortness of breath that started in May 2016 but especially worse in the last [address] PE protocol was done which showed a right-sided middle lobe lung mass. Patient also complains of orthopnea and some bilateral ankle swelling. Right middle lobe lung mass, rule out congestive heart failure, possible COPD - BNP was 268 which may be lower due to patient's body habitus. CT-guided lung biopsy on 09/22/2016. Preliminary biopsy results indicate small cell lung cancer but nondiagnostic. Oncology consulted, because of patient's heart failure, further biopsy and treatment will be done as outpatient including a PET scan. Continue duo nebs Acute systolic congestive heart failure exacerbation-resolving, echocardiogram done, showed an ejection fraction of 25-30%. Start lisinopril, metoprolol, aspirin, check lipid panel, might need statins. 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 No previous history of PR, consult cardiology for new onset congestive heart failure to establish with cardiology. History of tobacco use - quit smoking 22 years ago but patient smoked for about 20 years. Acute gout flare-start indomethacin Alcohol abuse - patient drinks 2-4 beer per night. CIWA protocol Full code. Lovenox Discharge Planning Discharged once cleared by cardiology Mikey Ochoa MD Sep 24, 2016 12:43
--- NOTE | 2016-09-24 13:25 | MB ---
cc: LUL TORRES DATE OF CONSULTATION 09/24/2016 DATE OF 1960 REASON FOR CONSULTATION Heart failure new-onset heart failure. HISTORY OF PRESENT ILLNESS 56-year-old male with history of alcohol abuse who was in his usual state of health until May this year when he developed an upper respiratory infection and continued having progressive worsening of shortness of breath on exertion. No chest pain and also leg edema. Echocardiogram done here shows global hypokinesis with an EF of 25-30%. He also had a CTA of his chest that showed a lung mass and he was been consulted to oncology. Biopsy has been done with other pending results. Cardiology has been consulted for new-onset LV systolic function. PAST MEDICAL HISTORY 1. Hypertension 2. Obesity PAST SURGICAL HISTORY None HOME MEDICATIONS None ALLERGIES NO KNOWN DRUG ALLERGIES. FAMILY HISTORY Coronary artery disease, otherwise none. SOCIAL HISTORY He denies illicit drug use, smoking or alcohol abuse. He works with [employer]. PHYSICAL EXAM VITAL SIGNS: Temperature 97, respiratory rate 18, heart rate 82, blood pressure 117/81, O2 sat 98% on room air. GENERAL: This is an awake, alert and oriented female in no acute distress. NECK: No JVD, no carotid bruits. HEART: Regular rate and rhythm. No murmurs, rubs or gallops. LUNGS: Clear to auscultation bilaterally. No rhonchi, wheezes or rales. ABDOMEN: Obese. Positive bowel sounds. Soft, nontender, nondistended. EXTREMITIES: There is no cyanosis or edema. Pulses throughout. DATA CBC hemoglobin 14, hematocrit of 42, platelet count 274, INR 1. Chemistries sodium 140, potassium 4.1, BUN 13, creatinine 1.05, troponin less than 0.02. BNP 268. CTA shows a 3.7 cm right median lobe mass. There is also cardiomegaly and mediastinal wilmar enlargement. EKG sinus rhythm with premature ventricular contractions. Echocardiogram LV systolic function with EF of 25-30%. ASSESSMENT/PLAN 56-year-old male with cardiac risk factors that include obesity, alcohol abuse and hypertension presented with new onset heart failure, also he has been found to have a lung mass suspicious for small cell carcinoma. He is pending biopsy results for further treatment. The patient remains febrile and hemodynamically stable. He has no cardiovascular complaints. 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 Given his echo findings of decreased LV systolic function and CAD risk factors will be recommended a left heart cath to assess for nonischemic cardiomyopathy versus ischemic cardiomyopathy. The risks and benefits of left heart cath including but not limited to neurovascular trauma, bleeding, chronic kidney injury, infection, stroke, cardiac bypass surgery, and have been explained to the patient. The patient understands the risks and he is willing to proceed. RECOMMENDATIONS Keep n.p.o. for left heart cath today. Further therapy to be determined. MD SHAYY Elizalde/RODO /12:45 PM /1:07 PM RICCO
[2016-09-24] MEDS ORDERED: IOHEXOL 350 MG/ML 100 ML BTL (for Cath Lab) OTHER ONE (13:44)
[2016-09-24] MEDS ORDERED: INDOMETHACIN 50 MG CAP PO SCH (14:00)
[2016-09-24] MEDS: INDOMETHACIN 50 MG CAP PO SCH ×2 (14:00→21:33)
[2016-09-24 14:02] LABS: HDL CHOLESTEROL 60.1 MG/DL (40.0-60.0)
[2016-09-24 16:00] VITALS: BP 119/77; PULSE 93; RESP 16; TEMP 99; O2SAT 95
[2016-09-24] MEDS ORDERED: HEPARIN-NS/PF INJ 500 ML ONE (18:32)
[2016-09-24] MEDS ORDERED: MIDAZOLAM HCL 5 MG/5 ML VIAL ONE (18:33)
[2016-09-24] MEDS ORDERED: VERAPAMIL HCL 5 MG/2 ML VIAL ONE (18:33)
[2016-09-24] MEDS ORDERED: HEPARIN SODIUM - IV 10,000 UNITS/10 ML VIAL ONE (18:34)
--- NOTE | 2016-09-24 18:47 | HHI.PR ---
Subjective Remarks 56 YOWM with RML mass, HTN, mils SOB Had Lung bx No PTX Lung bx suspicious for SSLC Echo decreased EF seen by Dr Simon and Percy Gross Objective Vital Signs Vital Signs Date Time Temp Pulse Resp B/P Pulse Ox O2 Delivery O2 Flow Rate FiO2 09/24/16 16:00 99.0 93 16 119/77 95 09/24/16 12:00 99.3 93 18 129/84 97 09/24/16 09:10 95 21 09/24/16 08:00 97.8 92 17 117/74 97 09/24/16 00:30 97.3 88 18 115/75 97 09/23/16 20:20 97.0 82 18 117/81 98 I/O 09/23/16 09/23/16 09/23/16 09/24/16 09/24/16 09/24/16 07:00 15:00 23:00 07:00 15:00 23:00 Intake Total 240 ml 600 ml 480 ml 480 ml 720 ml Output Total 125 ml Balance 115 ml 600 ml 480 ml 480 ml 720 ml Intake Oral 240 ml 600 ml 480 ml 480 ml 720 ml IV Total 0 ml Output Urine Total 125 ml # Voids 2 4 2 2 4 # Bowel Movements 1 1 Result Diagram: 09/22/16 0500 09/24/16 0455 Objective Remarks GENERAL: WBWN WM,NAD SKIN: Warm and dry. HEAD: Normocephalic. EYES: No scleral icterus. No injection or drainage. NECK: Supple, trachea midline. No JVD or lymphadenopathy. CARDIOVASCULAR: Regular rate and rhythm without murmurs, gallops, or rubs. RESPIRATORY: Breath sounds equal bilaterally. No accessory muscle use. GASTROINTESTINAL: Abdomen soft, non-tender, nondistended. MUSCULOSKELETAL: No cyanosis, or edema. BACK: Nontender without obvious deformity. No CVA tenderness. A/P Assessment and Plan RML Mass S/P lung bx Dysnoea HTN PLAN: DW Pt Monitor BP Eben Dr. Greer Cardiac post underway Going for cardiac cath Karthik King MD Sep 24, 2016 18:46
--- NOTE | 2016-09-24 19:21 | CATHPROC ---
[employer] HIS Report Study Information Study Number Admission Scheduled Start Study Start [id number] Sep 21 2016 12:10PM 09/24/2016 Sep 24 2016 6:17PM [place] Service Cardiac Catheterization Admit Source Facility Department Other [facility] Physical Therapist Physician and Clinical Staff Initial MD Telles, Mohan Patient Service AssociateYuliya Figueroa BSRN Patient Service Associate Cris Moncada,SYLVESTER Other cathlab, cathlab Recorder Néstor Low RCIS(BS) Scrub Ramírez WhitneyRT(R) Procedures Performed Procedure Location (Site) Vessel Name Coronary Angiograms LCA Left Coronary Coronary Angiograms RCA Right Coronary L Heart Cath LV Gram-hand inj. LV LV Ventricle Equipment Time Char Filter Operator Description Size Mfg Part Number Used/Scraped TRANSDUCER, TRUWAVE [id number] 18:18 DUARTE MONCADA * Used W/STOCKCOCK *[id number] *[id number] *[id number] 18:[address] PACK, CCL CUSTOM * Used *[id number] 18:[address] SUPPORT, ARTERIAL ADULT [id number] Used BAND, RADIAL COMPRESSION TR [id number] 19:14 [employer] MEDICAL 29CM Used LARGE 29 *[id number] 18:18 [employer]ion WIRE, 3MMJ .035 180CM 180CM Used *[id number] 18:18 NAMIC MANIFOLD, 4 PORT * Used *[id number] 18:18 NYCOMED OMNIPAQUE, 350 MG, 150ML 150ML [id number] Used [id number] 18:18 JEFF MEDICAL BLANKET,WARM AIR CCL * Used *[id number] SHEATH, FR6 TRANSRADIAL 18:18 RTF [employer] FR 6 [id number] Used SLENDER 10CM History: Current Medications Medication Dosage/Unit Route Frequency Last Date/Time Taken LOVENOX ASA History: Allergies Allergy Reaction No Known Allergies blood pressure medication History: Risk Factors Family History of Hypertension Dyslipidemia Previous DE Previous Heart Failure Premature CAD Yes No Yes No No Prior Valve Prior PCI Prior CABG Surgery No No No Cerebrovascular Peripheral Artery Chronic Lung On Dialysis Diabetes Disease Disease Disease No No No Yes No History: Stress Tests Stress or Imaging Studies Performed No History: Other Disease Selection Items HTN History: Other Current Smoker Method Quit Packs a Day Years Used Pack Years No Cigarettes 23 Years Ago 1 15 15 Labs Hgb (g/dl) Hct (%) WBC (l/cumm) Platelets (thousands) 11.60-17.00 35.00-51.00 4.00-11.00 150.00-450.00 14.7 42.6 7.1 274 Glucose (mg/dl) BUN (mg/dl) Creatinine (mg/dl) BUN:Creatinine (1:x) 74.00-106.00 7.00-18.00 0.50-1.30 10.00-20.00 92 13 1.0 13 Na (meq/l) K (meq/l) 136.00-145.00 3.50-5.10 140 4.1 INR (PTT:PT) 0.90-1.10 1 CPK-MB (ng/ML) 0.50-3.60 Not Drawn Medication Medication Total Dose (Bolus/Oral) Medication Total Dosage/Unit 1% XYLOCAINE 3 mL FENTANYL 50 mcg RADIAL COCKTAIL 5 mL (Bolus) VERSED 2 mg Medications (Bolus/Oral) Medication Time Given Dosage/Unit Administered By Reason VERSED 09/24/2016 7:03:42 PM 2 mg Cris Moncada 2 mg VERSED given in lab by Cris Moncada, SYLVESTER in Right Antecubital via Peripheral IV. Ordered by Mohan Telles. FENTANYL 09/24/2016 7:03:49 PM 50 mcg Cris Moncada 50 mcg FENTANYL given in lab by Cris Moncada, SYLVESTER in Right Antecubital via Peripheral IV. Ordered by Mohan Telles. 1% XYLOCAINE 09/24/2016 7:04:49 PM 3 mL Mohan Telles 3 mL 1% XYLOCAINE given in lab by Mohan Telles in Right Radial via Subcutaneous. Ntg 200mcg Verapamil 2.5mg Heparin RADIAL COCKTAIL 09/24/2016 7:06:39 PM 5 mL (Bolus) Kayla Tellesro 2500U 5 mL (Bolus) RADIAL COCKTAIL given in lab by Mohan Telles in Right Radial via Radial. Using [Elena ution Name]. Reason: Ntg 200mcg Verapamil 2.5mg Heparin 2500U. Medication (Drip) Medication Time Given Dosage/Unit Concentration/Unit Diluent (ml) Solutio n IV Solutions 09/24/2016 6:32:40 PM 0 mL (IV) 500 NaCl .9 Patient arrived on IV Solutions in Right Antecubital via Peripheral IV. Pump/Drip Flow = 20 ml/hr usi ng NaCl .9. Initial Case Assessment Cardiovascular HR Rhythm NIBP Chest Pain 99 sinus 115/80 0 Edema Present Skin color Skin None Normal Warm Dry Circulatory - Right Pulses Dorsalis Pedis Femoral Radial 3 3 3 Scale (0,1,2,3,4,d) Scale (0,1,2,3,4,d) Neurological State Oriented to time-place- Alert Moves all extremities person Respiration - General Respiration Rate SpO2 (%) (B/min) 17 98 Final Case Assessment Cardiovascular HR Rhythm NIBP Chest Pain 90 sinus 101/58 0 Edema Present Skin color Skin None Normal Warm Dry Circulatory - Right Pulses Dorsalis Pedis Femoral Radial 3 3 3 Scale (0,1,2,3,4,d) Scale (0,1,2,3,4,d) Neurological State Oriented to time-place- Alert Moves all extremities person Respiration - General Respiration Rate SpO2 (%) (B/min) 17 98 Chronological Log Time Study Chronological Log 18:32:31 Patient arrived via Bed. 18:32:31 Patient Name, D.O.B, / Armband Verified By R.N. 18:32:32 Consent signed by the physician and the patient and verified by the School Physical Therapist staff. 18:32:32 Pre-op and post- op instructions given; patient acknowledges understanding of instructions. 18:32:33 Verbal Stimulation=2 Physical Stimulation=2 Airway=2 Respiration=2 TOTAL=8. (0=absent, 1=li mited, 2=present) 18:32:33 Presedation assessment performed by School Physical Therapist RN. 18:32:34 Allens test performed on the right radial and ulnar artery. 18:32:35 Immediate Presedation assesment performed by physician. 18:32:36 Patient has been NPO for More than 6Hrs. 18:32:37 Skin Breakdown- none per patient 18:32:37 Patient Warmer Placed on the Table. 18:32:39 Karey Prominences Protected 18:32:40 A # 18 IV was noted in the Antecubital (right). Grade = 0 18:32:40 Patient arrived on IV Solutions in Right Antecubital via Peripheral IV. Pump/Drip Flow = 20 ml/hr using NaCl .9. 18:32:41 History and physical on the chart or being dictated. 18:39:24 Reference ECG taken Vitals capture started with the following parameters, Patient=Adult, Interval=5 min, Initial Pr lnfwom=754 mmHg, 18:40:20 Deflation Rate=5 mmHg 18:40:52 HR=99 bpm, YLXA=553/79 mmhg, SpO2=96.0 %, Resp=21 B/min, Pain=0, Marycarmen=10, Andrade=2 18:44:54 Right Radial and groin(s) prepped with 2% chlorhexidine, and with a 3 min. waiting time. Assessment: Initial Case, HR=99 BPM, Rhythm=sinus, ULXX=145/80 mmhg, Chest Pain=0, Edema=None, Color=Normal, Skin = Warm, Dry 18:45:27 Right Pulses: Chidi Ped=3, Femoral=3, Radial=3 Neurological: State=Alert, Ox3, NICOLE Respiration: Resp=17 B/min, SpO2=98 % 18:45:53 HR=98 bpm, ZPUE=510/80 mmhg, SpO2=97.0 %, Resp=14 B/min, Pain=0, Marycarmen=10, Andrade=2 18:46:03 MD paged 18:49:18 Pressure channel 1 zero failed. 18:49:33 Pressure channel 1 zeroed. 18:49:43 MD responded 18:50:52 HR=98 bpm, NWDW=932/83 mmhg, SpO2=96.0 %, Resp=9 B/min 18:55:57 HR=96 bpm, TXAP=111/79 mmhg, SpO2=95.0 %, Resp=13 B/min, Pain=0, Marycarmen=10, Andrade=2 19:00:54 HR=95 bpm, ZSVO=057/79 mmhg, SpO2=96.0 %, Resp=12 B/min, Pain=0, Marycarmen=10, Andrade=2 19:02:48 MD arrived. 19:02:58 Contrast Scanned 19:02:58 Immediate Presedation assesment performed by physician. 2 mg VERSED given in lab by Cris Moncada, RN in Right Antecubital via Peripheral IV. Order ed by Koki, 19:03:42 Mohan. 50 mcg FENTANYL given in lab by Cris Moncada RN in Right Antecubital via Peripheral IV. O rdered by Halina 19:03:49 Mohan Wilson. Time Out. Correct patient, correct procedure,correct physician, ,power injector not loaded with contrast with surgical 19:04:35 team present. Time Out Concurred by MD, individual staff in procedure 19:04:44 Case Start 19:04:45 Verbal Stimulation=2 Physical Stimulation=2 Airway=2 Respiration=2 TOTAL=8. (0=absent, 1=li mited, 2=present) 19:04:49 3 mL 1% XYLOCAINE given in lab by Mohan Telles in Right Radial via Subcutaneous. 19:05:53 HR=94 bpm, DWDK=847/78 mmhg, SpO2=92.0 %, Resp=16 B/min, Pain=0, Marycarmen=10, Andrade=2 19:06:22 Access site was Right Radial Artery. A SHEATH, FR6 TRANSRADIAL SLENDER 10CM FR 6 was advanced into the Radial (right) using the Perc utaneous 19:06:32 technique. 5 mL (Bolus) RADIAL COCKTAIL given in lab by Mohan Telles in Right Radial via Radial. Juan victoria [Solution Name]. 19:06:39 Reason: Ntg 200mcg Verapamil 2.5mg Heparin 2500U. A JR 4.0 INFINITI CATHETER FR 5 was advanced over a wire. OMNIPAQUE, 350 MG, 150ML 150ML was us ed for 19:07:45 injections. Recorded Pressure: LV, HR=96, Condition=Condition 1 19:07:52 (Left Ventricle) LV 96/3/5 19:07:57 The LV was manually injected with 10 cc's and visualized. OMNIPAQUE, 350 MG, 150ML 150ML us ed. Recorded Pressure: LV, Ao, HR=95, Condition=Condition 1 19:08:33 (Left Ventricle) LV 96/1/5, (Aorta) Ao 82/59/69 Recorded Pressure: Ao, HR=93, Condition=Condition 1 19:08:52 (Aorta) Ao 83/60/70 19:09:01 The RCA was injected and visualized at various angles. OMNIPAQUE, 350 MG, 150ML 150ML used . After removing the current catheter a JL 4.0 INFINITI CATHETER FR 5 was advanced over a WIRE, 3 MMJ .035 180CM 19:09:17 180CM. 19:10:58 HR=75 bpm, EGXY=527/58 mmhg, SpO2=95.0 %, Resp=18 B/min, Pain=0, Marycarmen=10, Andrade=2 19:11:53 The LCA was injected and visualized at various angles. OMNIPAQUE, 350 MG, 150ML 150ML used . 19:13:08 Catheter was removed 19:13:10 Case End Assessment: Final Case, HR=90 BPM, Rhythm=sinus, JDGC=312/58 mmhg, Chest Pain=0, Edema=None, Color=Normal, Skin = Warm, Dry 19:13:15 Right Pulses: Chidi Ped=3, Femoral=3, Radial=3 Neurological: State=Alert, Ox3, NICOLE Respiration: Resp=17 B/min, SpO2=98 % 19:13:36 Catheter(s) removed without difficulty Radial Compression Device Used. 12 mLs of air placed in BAND, RADIAL COMPRESSION TR LARGE 29 29 CM. Affected 19:13:37 hand 93 % O2 saturation. 19:14:01 Sterile dressing applied to site 19:14:01 No case complications noted. 19:14:02 Cine recording checked. 19:14:03 Bedside Report will be given. 19:14:05 Contrast Scanned 19:14:06 Verbal Stimulation=2 Physical Stimulation=2 Airway=2 Respiration=2 TOTAL=8. (0=absent, 1=li mited, 2=present) 19:14:14 A Left Heart Cath was performed. 19:15:53 HR=86 bpm, TZVZ=177/74 mmhg, SpO2=94.0 %, Resp=14 B/min, Pain=0, Marycarmen=10, Andrade=2 19:17:59 Patient moved to stretcher 19:18:01 Vitals capture stopped. End Study - Contrast Media Used In Study Contrast Total Opened (mL) Total Used (mL) Total Wasted (mL) Omnipaque 25 25 0 End Study - Maximum Contrast Load Max Contrast Load (mL) 592.5 End Study - Radiation Exposure Fluoro Time (minutes) 2.6 End Study - Patient Disposition Complications Transferred To Interventional Outcome No School Physical Therapist Holding No attempt made
--- NOTE | 2016-09-24 20:26 | MA ---
cc: LUL TORRES DATE: 09/24/2016. PROCEDURE PERFORMED: 1. Left heart catheterization. 2. Selective right and left coronary angiography. 3. Left ventriculogram. INDICATIONS FOR THE PROCEDURE: New-onset left ventricular systolic dysfunction / heart failure. [place] Heart Class II. APPROACH: Right transradial. DESCRIPTION OF THE PROCEDURE IN DETAIL: Consent signed. The patient was brought into the cardiac catheterization lab in a fasting state. The right wrist was prepped and draped in a sterile fashion. Using 1% lidocaine for local anesthesia and a micropuncture kit, a 6- Polish sheath was inserted into the right radial artery. Antispasmodic cocktail given. Then selective right and left coronary angiography was performed a JR-4 and JL-4 diagnostic catheters. Angiography was taken in multiple views. The JR-4 was introduced to the left ventricle over a wire. This was followed by pressure recordings, left ventriculogram and pullback. The patient tolerated the procedure well without complications. Estimated blood loss less than 30 mL. Total contrast used was 70 mL. The right wrist access site was closed with a TR band. RESULTS: 1. Left ventricle. The left ventricular pressure was 96/1 with an left ventricular end diastolic pressure of 5. The aortic pressure was 83/60 with a mean of 70. There was no gradient upon pullback from the left ventricle to the aorta. The left ventriculogram revealed a global hypokinesis with an estimated ejection fraction of 30% to 35%. ANGIOGRAPHY: 1. RIGHT CORONARY ARTERY: The right coronary artery is a dominant vessel giving off the posterior descending artery. It has minimal luminal irregularities throughout and no significant obstructive lesions. The vessel throughout has nonobstructive coronary artery disease. Besides the posterior descending artery , there is also a posterolateral branch which is patent with ROYER III flow and nonobstructive coronary artery disease. 2. LEFT MAIN: The left main has mild calcification in the mid-segment. It is patent with nonobstructive coronary artery disease. 3. LEFT ANTERIOR DESCENDING: The left anterior descending is a transapical vessel. It has the first diagonal which is about the same size prominent with nonobstructive coronary artery disease. 4. LEFT CIRCUMFLEX ARTERY: The left circumflex artery has nonobstructive coronary artery disease composed of mainly two OM vessels which are patent with ROYER III flow and nonobstructive CAD. There is also an AV groove segment circumflex, which is small and patent. CONCLUSIONS: 1. Nonischemic cardiomyopathy likely related to alcohol abuse 2. Left ventricular systolic dysfunction with estimated ejection fraction of 30- 35%. RECOMMENDATIONS: 1. Continue aggressive medical management with ASA, BB, ACEi, Aldactone 2. Alcohol cessation 3. The rest of the care per hematology/oncology. 4. Follow up with cardiology upon discharge MD SHAYY Elizalde/JCC /7:26 PM /8:21 PM RICCO
[2016-09-24] MEDS: CARVEDILOL 3.125 MG TAB PO SCH (21:00)
[2016-09-24] MEDS: ACETAMINOPHEN 325 MG TAB PO PRN (21:43)
[2016-09-24 21:57] VITALS: BP 110/69; PULSE 93; RESP 18; TEMP 97.7; O2SAT 98
[2016-09-25 00:21] VITALS: BP 122/77; PULSE 90; RESP 20; TEMP 99.3; O2SAT 96
[2016-09-25] MEDS: INDOMETHACIN 50 MG CAP PO SCH ×2 (04:57→13:09)
[2016-09-25] MEDS: ACETAMINOPHEN 325 MG TAB PO PRN (05:01)
[2016-09-25 08:00] VITALS: BP 100/63; PULSE 67; RESP 16; TEMP 95.5; O2SAT 95
[2016-09-25] MEDS: ASPIRIN EC 81 MG TABEC PO SCH (08:51)
[2016-09-25] MEDS: CARVEDILOL 3.125 MG TAB PO SCH (08:51)
[2016-09-25] MEDS: DOCUSATE SODIUM 50 MG/SENNA 8.6 MG TAB PO SCH (08:52)
[2016-09-25] MEDS: LISINOPRIL 5 MG TAB PO SCH (08:52)
--- NOTE | 2016-09-25 08:52 | HHI.DS ---
Discharge Summary Admission Date Sep 21, 2016 at 12:10 Discharge Date: Sep 25, 2016 Admitting Diagnosis shortness of breath/lung mass (1) Lung mass ICD Code: R91.8 Diagnosis: Principal (2) Hypertension ICD Code: I10 Diagnosis: Secondary (3) GERD (gastroesophageal reflux disease) ICD Code: K21.9 Diagnosis: Secondary (4) Non-ischemic cardiomyopathy ICD Code: I42.8 Diagnosis: Principal Procedures Lung biopsy CT guided 09/22/2016. Cardiac catheterization 09/24/16 Brief History - From Admission Mr. Parnell is a pleasant 56-year-old male with a history of hypertension who presents to the emergency department today due to shortness of breath. Patient started noticing dyspnea in May 2016 but especially in the last 4 weeks he has noticed much worsening of his symptoms. He is not able to walk even short distances within his house. He denies any productive cough or fever or chills. This morning around 2 AM he woke up with shortness of breath. He has been increasing number of pillows from 1-3 pillows to sleep. Even then sometimes he has to sleep upright. He has not noticed much leg swelling except some bilateral ankle swelling. Today he went to work but he could not get out of the car because he felt so sick and short of breath. Subsequently he came to the emergency Department for an evaluation. He denies any changes in bowel or bladder habits. Denies any abdominal pain. CBC/BMP: 09/22/16 0500 09/24/16 0455 Significant Findings Laboratory Tests Test 09/23/16 09/24/16 19:10 04:55 Estimat Glomerular Filtration 67 ML/MIN (>89) 73 ML/MIN (>89) Rate Random Glucose 138 MG/DL (74-106) HDL Cholesterol 60.1 MG/DL (40.0-60.0) Imaging Last Impressions Lung Biopsy CT 09/22/16 0000 Signed Impressions: Service Date/Time: Thursday, September 22, 2016 15:02 - CONCLUSION: Uncomplicated CT guided biopsy. Reginaldo Durbin MD Chest X-Ray 09/22/16 0000 Signed Impressions: Service Date/Time: Thursday, September 22, 2016 17:19 - CONCLUSION: 1. No significant pneumothorax following biopsy of right middle lobe mass. Domenic Cardoso MD CT Angiography 09/21/16 0943 Signed Impressions: Service Date/Time: Wednesday, September 21, 2016 10:51 - CONCLUSION: 3.7 cm right middle lobe mass. Cardiomegaly, small effusions and nonspecific mediastinal wilmar enlargement. No evidence of pulmonary embolism Edmund Melton MD PE at Discharge GENERAL: Alert, oriented 3, NAD. NECK: Supple, trachea midline. CARDIOVASCULAR: Regular rate and rhythm without murmurs, gallops, or rubs. RESPIRATORY: Decreased breath sounds, no crackles. GASTROINTESTINAL: Abdomen soft, non-tender, nondistended. MUSCULOSKELETAL: No cyanosis, or edema. BACK: Nontender without obvious deformity. No CVA tenderness. Alert awake and oriented 3, no focal deficits. Pt update on day of discharge No overnight events, no radial pain on the right, denies any chest pain or shortness of breath. No nausea or vomiting. Denies palpitations Hospital Course Mr. Parnell is a 56-year-old male with a history of hypertension, remote history of smoking who presents to the emergency department due to worsening shortness of breath that started in May 2016 but especially worse in the last [address] PE protocol was done which showed a right-sided middle lobe lung mass. Patient also complains of orthopnea and some bilateral ankle swelling. Upon admission, the patient was suspected to have congestive heart failure, possible COPD. Pulmonary was consulted, had a lung biopsy was done on 09/22/16.Preliminary biopsy results indicate small cell lung cancer but nondiagnostic. Oncology consulted, because of patient's heart failure, further biopsy and treatment will be done as outpatient including a PET scan. Since chest x-ray showed possible congestive heart failure, an echocardiogram was done , ejection fraction was found to be 25-30%. Patient was started on lisinopril, aspirin and beta blockers. Cardiology was consulted, cardiac catheterization was done, clean coronaries, per cardiology, likely nonischemic cardiomyopathy. Possibly secondary to alcohol use. Patient was told to abstain from alcohol. He will be continued on aspirin, lisinopril, spironolactone and Coreg. Patient will be discharge. He will follow-up with cardiology, oncology and pulmonary. Case management was asked to help with patient assistance. Pt Condition on Discharge: Good Discharge Disposition: Discharge Home Discharge Time: > 30 minutes Discharge Instructions DIET: Follow Instructions for: Heart Healthy Diet Activities you can perform: Regular-No Restrictions Follow up Referrals: Cardiology - 2 Weeks Oncology - 1 Week with TORREY PCP Follow-up - 1 Week Pulmonology - 09/30/16 with Karthik King MD New Medications: Aspirin (Aspirin) 81 Mg Chew 81 MG CHEW DAILY CHF #30 Ref 0 TAB Carvedilol (Coreg) 3.125 Mg Tab 3.125 MG PO Q12HR CHF #60 TAB Indomethacin (Indomethacin) 50 Mg Cap 50 MG PO Q8HR gout #18 CAP Lisinopril (Lisinopril) 5 Mg Tab 2.5 MG PO DAILY CHF #30 TAB Spironolactone (Aldactone) 25 Mg Tab 25 MG PO DAILY CHF #30 TAB Continued Medications: Albuterol Powder Inh (Proair Respiclick Inh) 90 Mcg/Act Aerp 1 PUFF INH Q4H PRN SHORTNESS OF BREATH #1 Ref 0 INHALER (This prescription has been renewed) Mikey Ochoa MD Sep 25, 2016 08:52
[2016-09-25] MEDS ORDERED: INDO50CA PO (08:53)
[2016-09-25] MEDS ORDERED: SPIR25 PO (08:53)
[2016-09-25] MEDS ORDERED: CARV3.125 PO (08:53)
[2016-09-25] MEDS: SODIUM CHLORIDE 0.9% FLUSH 10 ML FLUSH IV FLUSH SCH (08:54)
[2016-09-25] MEDS: ENOXAPARIN SODIUM 40 MG/0.4 ML SYRINGE SQ SCH (08:55)
[2016-09-25] MEDS ORDERED: SPIRONOLACTONE 25 MG TAB PO SCH (09:00)
[2016-09-25 12:00] VITALS: BP 101/70; PULSE 73; RESP 16; TEMP 96.3; O2SAT 98
== END 2016-09-25 13:45 | disposition home or self-care (01) ==
LOC: NEPC 08:11 → NEDA 12:10 → INTOOBSV 12:10 → N07B 13:01
PROVIDERS: ADMIT Hospitalist; ATTEND Hospitalist
DX: K21.9 Gastro-esophageal reflux disease without esophagitis (principal); I11.0 Hypertensive heart disease with heart failure; I50.23 Acute on chronic systolic (congestive) heart failure; R91.8 Other nonspecific abnormal finding of lung field; R06.02 Shortness of breath; R06.00 Dyspnea, unspecified; M25.472 Effusion, left ankle; M25.471 Effusion, right ankle; R59.0 Localized enlarged lymph nodes; I25.10 Atherosclerotic heart disease of native coronary artery without angina pectoris; J45.909 Unspecified asthma, uncomplicated; I51.7 Cardiomegaly; I42.9 Cardiomyopathy, unspecified; I49.3 Ventricular premature depolarization; I34.0 Nonrheumatic mitral (valve) insufficiency; F10.10 Alcohol abuse, uncomplicated; E66.9 Obesity, unspecified; Z79.899 Other long term (current) drug therapy; Z79.82 Long term (current) use of aspirin; Z87.891 Personal history of nicotine dependence; Z23 Encounter for immunization
CPT/HCPCS: 32405; 71010; 71275; 77012; 80048; 80053; 80061; 82550; 82552; 83880; 84484; 85025; 85379; 85610; 85730; 88305; 90732; 93005; 93306; 93458; 96374; 99285; C1769; C1893; G0378; J1644; J1650; J1940; J2250; J3010; Q9967